=== PATIENT | male | born 1970 | race Caucasian/White ===

== ENCOUNTER 2016-12-30 20:18 | Emergency (ER) | payer OTHER ==
[2016-12-30 20:24] VITALS: BP 146/115
[2016-12-30] MEDS ORDERED: Iopamidol 612 MG/ML 150 ML Bottle IVPUSH ONE (23:37)
[2016-12-30] MEDS ORDERED: Diatrizoate Meglumine/Diatrizoate Sodium 37% 120 ML Bottle PO ONE (23:37)
[2016-12-30] MEDS ORDERED: Sodium Chloride 0.9% 10 ML Syringe FLUSH ONE (23:37)
[2016-12-30] MEDS ORDERED: Ketorolac 30 MG/ML SDV IVPUSH ONE (23:54)
--- NOTE | 2016-12-31 01:00 | EDM.PDOC ---
ED HPI GENERAL MEDICAL PROBLEM - General Chief Complaint: Back Pain or Injury Stated Complaint: [facility] Time Seen by Provider: 12/30/16 20:40 Source of Information: Reports: Patient, EMS History Limitations: Reports: No Limitations - History of Present Illness INITIAL COMMENTS - FREE TEXT/NARRATIVE: 46 year old male presents via EMS for evaluation and treatment of back pain and muscle spasms. Patient was in [place] today playing golf when his back pain significantly worsened and he developed severe muscle spasms. Patient also reports stomach pain today about 4 hours ago, unsure if this is steaming from his back. Patient was given 0.5mg I dilaudid for his pain. Upon my questioning and examination he is very lethargic from the dilaudid and has difficulty staying awake. No obvious discomfort during my examination. present at the bedside. Reports he first started experiencing back pain October 21. No obvious injury. 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 He has been seeing family medicine at his home in [place]. He has been tried on muscle relaxers, including flexeril and robaxin, and tramadol but is not taking these. is also concerned about an erythematous area to the proximal, medial right leg. Unsure how this area developed. She questions if he was poisoned. Patient has a pacemaker in place. Treatments STONE UNLOADER: Reports: IV/IO, Other (see below) Other Treatments STONE UNLOADER: dilaudid right hip Pain Score (Numeric/FACES): 8 - Related Data Allergies Allergy/AdvReac Type Severity Reaction Status Date / Time No Known Allergies Allergy Verified 12/30/16 20:24 Home Meds: Home Meds Ibuprofen 200 mg PO ASDIRECTED PRN 12/30/16 [History] Methocarbamol 1,500 mg PO TID PRN 12/30/16 [History] traMADol [Ultram] 50 mg PO Q6H PRN 12/30/16 [History] Doxycycline [Vibramycin] 100 mg PO BID #20 cap 12/31/16 [Rx] Hydrocodone/Acetaminophen [[place] 5-325 Tablet] 1 each PO Q4H PRN #5 tablet 12/31 [Rx] Magnesium Citrate [Citroma] 296 ml PO ASDIRECTED #1 bottle 12/31/16 [Rx] Past Medical History HEENT History: Reports: Hard of Hearing Cardiovascular History: Reports: Other (See Below) Other Cardiovascular History: SVT - Past Surgical History Cardiovascular Surgical History: Reports: AICD, Pacer Musculoskeletal Surgical History: Reports: Other (See Below) Other Musculoskeletal Surgeries/Procedures:: rotator cuff surgery Social & Family History - Family History Family Medical History: Noncontributory - Tobacco Use Smoking Status *Q: Never Smoker Second Hand Smoke Exposure: No - Caffeine Use Caffeine Use: Reports: Soda - Recreational Drug Use Recreational Drug Use: No ED ROS GENERAL - Review of Systems Review Of Systems: See Below (difficulty to obtain history as the patient was very lethargic from the dilaudid and fell asleep on multiple occassions during my examination) Constitutional: Denies: Fever GI/Abdominal: Reports: Abdominal Pain (across the lower abdomen). Denies: Nausea, Stool Incontinence, Vomiting : Denies: Dysuria, Hematuria, Incontinence Musculoskeletal: Reports: Back Pain (lower back) Skin: Reports: Erythema (right medial proximal leg), Wound (3 crusted areas to the right medial proximal leg approximately 1cm in diameter) Neurological: Reports: Other (no saddle anesthesia). Denies: Numbness, Tingling ED EXAM,LOWER BACK PAIN/INJURY - Physical Exam Exam: See Below Exam Limited By: No Limitations General Appearance: WD/WN, No Apparent Distress, Lethargic Nose: Normal Inspection Throat/Mouth: Normal Inspection, Normal Voice, No Airway Compromise Neck: Normal Inspection, Supple, Non-Tender Respiratory/Chest: No Respiratory Distress, Lungs Clear, Normal Breath Sounds Cardiovascular: Normal Peripheral Pulses, Regular Rate, Rhythm, No Murmur GI/Abdominal: Normal Bowel Sounds, Soft, Tender (tenderness to the left and right lower abdomen with palpation). No: Distended, Guarding, Rebound Back Exam: Normal Inspection, Paraspinal Tenderness (lumar spine ) Extremities: Normal Inspection Neurological: Normal Mood/Affect, Normal Dorsiflexion, Normal Plantar Flexion. No: Straight Leg Raise (L), Straight Leg Raise (R) Psychiatric: Normal Affect, Normal Mood Skin Exam: Warm, Dry, Normal Color, Erythema (approximatly 10 cm in diameter area of erythema and increased warmth to the right medial, proximal leg with 3 1cm in diameter superficial crusted areas ) Course - Vital Signs Last Recorded V/S: Last Vital Signs Temp 36.3 C 12/30/16 20:20 Pulse 88 12/30/16 20:20 Resp 18 12/30/16 20:20 BP 146/115 H 12/30/16 20:20 Pulse Ox 84 L 12/30/16 20:43 - Orders/Labs/Meds Labs: Laboratory Tests 12/30/16 12/30/16 12/31/16 Range/Units 21:27 21:27 00:02 WBC 14.51 H (4.23-9.07) K/mm3 RBC 5.32 (4.63-6.08) M/mm3 Hgb 16.2 (13.7-17.5) gm/L Hct 46.3 (40.1-51.0) % MCV 87.0 (79.0-92.2) fl MCH 30.5 (25.7-32.2) pg MCHC 35.0 (32.2-35.5) g/dl RDW Std Deviation 41.6 (35.1-43.9) fL Plt Count 296 (163-337) K/mm3 MPV 8.6 L (9.4-12.3) fl Neutrophils % (Manual) 85 H (40-60) % Band Neutrophils % 0 (0-10) % Lymphocytes % (Manual) 8 L (20-40) % Atypical Lymphs % 0 % Monocytes % (Manual) 5 (2-10) % Eosinophils % (Manual) 2 (0.8-7.0) % Basophils % (Manual) 0 L (0.2-1.2) Platelet Estimate Adequate RBC Morph Comment Normal Sodium 142 (136-145) mEq/L Potassium 3.8 (3.5-5.1) mEq/L Chloride 106 (98-107) mEq/L Carbon Dioxide 26 (21-32) mEq/L Anion Gap 13.8 (5-15) BUN 40 H (7-18) mg/dL Creatinine 1.2 (0.7-1.3) mg/dL Est Cr Clr Drug Dosing 74.42 mL/min Estimated GFR (MDRD) > 60 (>60) mL/min BUN/Creatinine Ratio 33.3 H (14-18) Glucose 113 H (74-106) mg/dL Calcium 8.6 (8.5-10.1) mg/dL Total Bilirubin 0.5 (0.2-1.0) mg/dL AST 35 (15-37) U/L ALT 50 (16-63) U/L Alkaline Phosphatase 75 (46-116) U/L C-Reactive Protein 0.8 (<1.0) mg/dL Total Protein 7.2 (6.4-8.2) g/dl Albumin 3.8 (3.4-5.0) g/dl Globulin 3.4 gm/dL Albumin/Globulin Ratio 1.1 (1-2) Urine Color Yellow (Yellow) Urine Appearance Clear (Clear) Urine pH 7.0 (5.0-8.0) Ur Specific [place] 1.025 (1.005-1.030) Urine Protein 1+ H (Negative) Urine Glucose (UA) Negative (Negative) Urine Ketones Trace H (Negative) Urine Occult Blood Negative (Negative) Urine Nitrite Negative (Negative) Urine Bilirubin Negative (Negative) Urine Urobilinogen 0.2 (0.2-1.0) Ur Leukocyte Esterase Negative (Negative) Urine RBC 0-5 (0-5) /hpf Urine WBC 0-5 (0-5) /hpf Ur Epithelial Cells 0-5 (0-5) /hpf Urine Bacteria Rare (FEW) /hpf Urine Mucus Few (FEW) /hpf Meds: Medications Discontinued Medications Generic Name Dose Route Start Last Admin Trade Name Freq PRN Reason Stop Dose Admin Hydrocodone Bitart/Acetaminophen 5 tab 12/31/16 01:15 [place] 325-5 Mg .ROUTE 12/31/16 01:16 .STK-MED ONE Diatrizoate Meglum/Diatrizoate Sod 90 ml 12/30/16 23:37 12/31/16 00:10 Gastrografin 37% PO 12/30/16 23:38 90 ml ONETIME ONE Administration Diazepam 2 mg 12/30/16 23:54 Valium IVPUSH 12/30/16 23:55 ONETIME ONE Iopamidol 125 ml 12/30/16 23:37 12/31/16 00:10 Isovue-300 (61%) IVPUSH 12/30/16 23:38 125 ml ONETIME ONE Administration Ketorolac Tromethamine 30 mg 12/30/16 23:54 Toradol IVPUSH 12/30/16 23:55 ONETIME ONE Sodium Chloride 10 ml 12/30/16 23:37 12/31/16 00:10 Saline Flush FLUSH 12/30/16 23:38 10 ml ONETIME ONE Administration - Radiology Interpretation Free Text/Narrative:: CT of the lumbar spine without contrast impression per [facility]: 1. no evidence of acute fracture or acute bony abnormality. 2, Combination of congenitally small central canal, disc buldge and some ligamentum flavum hypertrophy results in moderate central canal stenosis at L2-L3 and mild central canal stenosis at L3- L4 and L4-L5 3. Subtle increased density or sclerosis in the S1 vetebral body is likely a normal variant but stress injuries have this appearance. CT of the abdomen and pelvis impression per [facility]: 1. moderate amount of stool throughout the colon. Correlate with any cause patient's symptoms. 2. Sublte sclerosis in S1 vertebral body. Nonspecific. Normal variant possibly. Stress injury would be consideration if there is localized pain. - Re-Assessments/Exams Free Text/Narrative Re-Assessment/Exam: 12/30/16 22:54 Reviewed the labs with the patient and . Elevated WBC likely from the cellulitis to the leg. Given abdominal pain is new onset will obtain CT of the abdomen and pelvis and lumbar spine to further evaluate pain. 12/30/16 23:50 Continues to be lethargic but is more awake. Complaining of muscle spasms. Ordered valvium and toradol to be given for pain and muscle spasms. 12/31/16 00:[address] results with the patient. Abdominal pain likely from constipation. elevated wbc likely from cellulitis. back pain likely from central canal stenosis from disc bulge, congenital abnormalities and ligament hypertrophy. I will have him follow-up with his PCP for further evaluation of this. Will likely need PT. Possibly referral to neurosurgery. toradol and valvium not given as patient fell asleep again. Will discharge home at this time. Discharge instructions as documented. Departure - Departure Time of Disposition: 00:54 Disposition: Home, Self-Care 01 Condition: Fair Clinical Impression: Muscle spasm of back, Bulging lumbar disc, Constipation, Cellulitis and abscess of leg - Discharge Information Prescriptions: Doxycycline [Vibramycin] 100 mg PO BID #20 cap Hydrocodone/Acetaminophen [[place] 5-325 Tablet] 1 each PO Q4H PRN #5 tablet PRN Reason: Pain Magnesium Citrate [Citroma] 296 ml PO ASDIRECTED #1 bottle Instructions: Muscle Cramps and Spasms, Constipation, Adult Referrals: Priyanka Carvajal NP [Primary Care Provider] - Ruddy Bundy [Physician] - Forms: ED Department Discharge Additional Instructions: A 5 pack of [place] was given for ear pain tonight before your return home. On half tab to 1 tab every 4-6 hours as needed for pain. Do not drive or operate machinery within 12 hours of taking prescription narcotic pain medications. Narcotics can be habit-forming, I recommend you take as few of these as needed to control your pain. recommend using moist heat to the bacl. He may also try topical products such as icy hot or BenGay. Continue with either robaxin or the Flexeril for muscle relaxation. Continue with the ibuprofen for pain relief. Tramadol or [place] as needed for severe pain. Take the doxycycline 1 tab twice a day. This medication is for the cellulitis to right thigh. He was found of constipation in the ER tonight. The contrast that he drank for the CT will likely cause you to have a bowel movement. I recommend you drink half of the bottle make citrate tomorrow. If he did have a large bowel movement within 12 hours drink the second half bottle. This is to have a bowel cleanout. Follow-up with family medicine this week. If you are unable to see your primary care provider recommend Dr. Bush. Please call [phone] Bush at the [facility]. Please return to the ER if your symptoms change or worsen.
[2016-12-31] MEDS ORDERED: Acetaminophen/HYDROcodone 325-5 MG Tab ONE (01:15)
--- NOTE | 2017-01-01 08:58 | CT ---
CT abdomen and pelvis Technique: Multiple axial sections were obtained from above the dome of the diaphragm inferiorly through the pubic symphysis. Intravenous and oral contrast was utilized. Comparison: No previous abdominal CT exam. Findings: Small portion of the visualized lung bases show minimal atelectasis. Liver shows no focal parenchymal abnormality. Spleen appears within normal limits. Adrenal glands show no nodule. Pancreas is within normal limits. Kidneys show contrast enhancement without hydronephrosis or mass. Aorta shows no aneurysmal dilatation. No retroperitoneal adenopathy or mesenteric abnormalities are seen. No pelvic mass or adenopathy is seen. Delayed images show contrast within the bladder. Mild increased stool is noted throughout the colon. Bone window settings were reviewed which show slight degenerative change within the spine. Impression: 1. Mild increased stool within the colon. 2. Nothing acute is identified on CT study of the abdomen and pelvis. Diagnostic code #2 I agree with preliminary report issued by [employer] ([facility] preliminary report dictated on 12/31/16, 1:30 AM Central Time)
--- NOTE | 2017-01-01 12:16 | CT ---
CT lumbar spine Technique: Multiple axial sections were obtained from above the T9 level inferiorly through the L5-S1 level. Reconstructed sagittal and coronal images were reviewed. Findings: Mild disc space narrowing is noted at T10-T11 with mild circumferential disc bulge. Slight anterior wedging of T12 is seen which appears to be old. Mild disc space narrowing is noted at L2-3. Circumferential disc bulge is seen. Findings cause a mild to moderate amount of central canal stenosis. Slight circumferential disc bulge is noted at L3-L4 and L4-L5. Minimal central canal stenosis is noted at L3-L4 and L4-L5. No acute fracture is seen. Minimal sclerosis is noted within the superior aspect of S1 which is most likely incidental. Impression: 1. Disc space degenerative change as noted above. Most prominent finding at L2-3 which shows mild to moderate central canal stenosis. Diagnostic code #2 I agree with preliminary report issued by [facility] ([facility] preliminary report dictated on 12/31/16, 1:35 AM Central Time)
== END 2016-12-31 01:23 | disposition home or self-care (01) ==
LOC: JD.ED 20:18
DX: M62.830 Muscle spasm of back (principal); M51.9 Unspecified thoracic, thoracolumbar and lumbosacral intervertebral disc disorder; K59.00 Constipation, unspecified; L03.115 Cellulitis of right lower limb; L02.415 Cutaneous abscess of right lower limb
CPT/HCPCS: 36415; 72131; 74177; 80053; 81001; 85025; 86140; 99285; A9270; J7050; Q9963; Q9967; 99284